=== PATIENT | female | born 1990 | race Hispanic/Latino ===

== ENCOUNTER 2019-07-22 09:48 | Inpatient (IN) | payer MEDICAID, OTHER, SELFPAY ==
[2019-07-22] MEDS ORDERED: Ondansetron PF 4 MG/2 ML Vial IVP PRN ×3 (09:57→15:14)
[2019-07-22] MEDS ORDERED: hydrALAZINE 20 MG/ML VIAL SLOW IVP PRN ×2 (09:57→15:14)
[2019-07-22] MEDS ORDERED: Promethazine HCl 25 MG/ML VIAL IM PRN ×2 (09:57→13:28)
[2019-07-22] MEDS ORDERED: Acetaminophen 500 MG TAB PO PRN (09:57)
[2019-07-22] MEDS ORDERED: CEFAZOLIN 2 GM in Premix Bag 1 BAG IVPB SCH (10:00)
[2019-07-22] MEDS ORDERED: Bicitra 30 ML UDCUP PO SCH (10:00)
[2019-07-22 10:48] VITALS: BMI 38.2
[2019-07-22] MEDS: Lactated Ringer's 1,000 ML IV SCH ×2 (11:06→21:31)
[2019-07-22] MEDS ORDERED: FLU VACC QS2019-20(6MOS UP)/PF 60 MCG/0.5 ML SYRINGE IM ONE (11:15)
--- NOTE | 2019-07-22 11:23 | PDOC.FPROB ---
FMR OB H&P: HPI - History of Present Illness Chief Complaint: Scheduled rLTCS Indentification: 28 year old at 39.2 wks History of Present Illness: 28 year old at 39.2 wks by LMP/15.3 wk sono presents for scheduled rLTCS. Patient doing well. Denies contractions, LoF, vaginal bleeding, vaginal discharge. Patient endorses good movement. Primary Care Physician: BHANU Resendez FMR OB H&P: Current - Care : 2 Para: 1001 Gestational age: 39.2 wks Due date: 07/27/2019 Dating Criteria: LMP/15.3 wk sono - OB Labs Blood type: A RH: positive Antibody Screen: negative HIV: negative RPR: negative HepBsAg: negative Rubella: immune A1c: 6.0% GBS: positive FMR OB H&P: History - Past Medical History PMH: Denies any significant PMH - OB History OB History: C/S x1 GERD A2 GDM on metformin; good control on medication - BAND DIRECTOR History BAND DIRECTOR History: Denies history of STD's - Surgical History Sx History: C/S x1 - Social History Social History: Denies alcohol, tobacco, or drug use FMR OB H&P: Medications - Current Home Medications: Medication Instructions Recorded Confirmed Type Pnv No.95/Ferrous Fum/Folic AC 1 tablet PO DAILY 12/17/14 07/22/19 History [ Tablet] metFORMIN [Glucophage] 500 mg PO QAM-WM 07/22/19 07/22/19 History Allergies/Adverse Reactions: Allergies Allergy/AdvReac Type Severity Reaction Status Date / Time No Known Drug Allergies Allergy Verified 07/22/19 10:47 FMR OB H&P: ROS - Review of Systems General: denies: fever/chills, weight/appetite/sleep changes Eyes: denies: vision changes, scotomas ENT: denies: rhinorrhea, sore throat Cardiovascular: denies: chest pain, palpitation Gastrointestinal: denies: abdominal pain, nausea, vomiting Genitourinary (Female): denies: dysuria, vaginal discharge, vaginal bleeding, contractions Musculoskeletal: denies: pain, stiffness Integumentary: denies: itching, rash, lesions Hematologic/Lymphatic: denies: prolonged or excessive bleeding Psychological: denies: depression, anxiety FMR OB H&P: Vital Signs - Maternal Vital signs: BP 138/76 Pulse 80 Afebrile - Heart Tones Baseline: 140 (reactive) Variability: moderate Acceleration: present Deceleration: absent FMR OB H&P: Physical Exam - Physical Exam General: NAD, awake, alert and oriented HEENT: MMM Heart: RRR, pulses present General: no respiratory distress, good air movement Abdomen: soft, gravid, non-tender Musculoskeletal: pulses present, FROM in all four extremities Neurological: no tremor, no focal deficit Skin: no rash, capillary refill <2 seconds Lymphatic: no unusual bruising or bleeding, no purpura Psychiatric: intact recent and remote memory, good judgement and insight, normal mood and affect FMR OB H&P: A/P - Problem List (1) Term Current Visit: Yes Status: Acute Code(s): Z34.90 - ENCNTR FOR SUPRVSN OF NORMAL , UNSP, UNSP TRIMESTER (2) GDM, class A2 Current Visit: Yes Status: Acute Code(s): O24.419 - GESTATIONAL DIABETES MELLITUS IN , UNSP CONTROL Disposition: 28 year old at 39.2 wks by LMP/15.3 wk sono presents for scheduled rLTCS Encounter for scheduled rLTCS - Hx A2GDM, well controlled on metformin - Previous C/S for failure to progress - Per MFM, not a good TOLAC candidate - Reactive NST - Placenta posterior; no evidence of accreta per MFM A2GDM - Well controlled on Meformin - Will need 2h GTT at 6 wk PP visit Class II Morbid obesity - Patient with qwk testing starting at 32 weeks which were reassuring Hx child with 2V cord - Current fetus with 3V cord Dispo: Admit to L&D. Anticipate LOS >48 hours. Discussion: Date/Time: 07/22/19 1121 This H&P was discussed with Dr. Donis who agrees with the above documentation and plan. Signature: Rosina Resendez DO PGY-3 Addendum - Attending - Attending Attestation Date/Time: 07/22/19 5500 I personally evaluated the patient and discussed the management with Dr. Resendez. I agree with the History, Examination, Assessment and Plan documented above with any addition or exceptions noted below. Discussed r/b/a/i of RCD including pain, bleeding, infection, damage to bowel, bladder, other internal organs, need for repeat operation, blood transfusion, prolonged hospitalization, as well as more morbid complications. Patient voiced understanding and desires to proceed.
[2019-07-22 11:24] LABS: Mean Corpuscular HGB CONC 33.1 g/dL (32.0-36.0); Mean Corpuscular Hemoglobin 29.1 pg (27.0-31.0); Mean Platelet Volume 8.5 fL (7.4-10.4); Platelet Count 253 thou/uL (130-400); Red Blood Cell (RBC) Count 4.46 mill/uL (4.20-5.40); White Blood Cell (WBC) Count 9.9 thou/uL (4.8-10.8)
[2019-07-22] MEDS ORDERED: MORPHINE 5 MG/10 ML PF VIAL ONE (11:51)
[2019-07-22] MEDS ORDERED: Ondansetron PF 4 MG/2 ML Vial ONE (11:51)
[2019-07-22] MEDS ORDERED: EPHEDRINE 25 MG/5 ML SYRINGE ONE (11:51)
[2019-07-22] MEDS ORDERED: Oxytocin 10 UNITS/ML VIAL ONE (11:51)
[2019-07-22] MEDS ORDERED: PHENYLEPHRINE-NS 100 MCG/ML 10 ML SYRINGE ONE (11:51)
[2019-07-22 12:01] LABS: HBSAg Index 0.25 S/CO (0-0.99); Hep B Surf Ag Non-Reactive S/CO (NonReactive); Syphilis Antibody Nonreactive (Nonreactive); Syphilis Antibody Index 0.03 S/CO (<1.00 Non-Reactive)
[2019-07-22] MEDS ORDERED: Promethazine HCl 25 MG SUPP PR PRN (13:28)
[2019-07-22] MEDS ORDERED: diphenhydrAMINE 50 MG/ML VIAL IVP PRN (13:28)
[2019-07-22] MEDS ORDERED: Naloxone HCl 0.4 mg/ml Vial IV PRN (13:28)
[2019-07-22] MEDS ORDERED: Naloxone HCl 0.4 mg/ml Vial IVP PRN ×2 (13:28)
[2019-07-22] MEDS ORDERED: Communication Order-Pharmacy FS SCH (13:30)
--- NOTE | 2019-07-22 13:46 | PDOC.OPDEL ---
OB Operative/Delivery Note Delivery Dr/Surgeon: Dipti Aguirre McGehee Assist: Attending: Gagandeep Pre-Delivery Diagnosis: scheduled section Procedure/Post Delivery Dx: repeat low transverse CS Weeks gestation: 39 (39.2) Anesthesia: spinal - Findings A Sex: female - 1 min: 8 - 5 min: 9 - Additional Findings/Plan Placenta delivered: spontaneous findings: low transverse hysterotomy with extension Estimated blood loss: 750 Compilations/Other Findings: See dictation for detailed operative note. Post delivery plan: recovery in LICU
[2019-07-22] MEDS ORDERED: diphenhydrAMINE 25 MG CAP PO PRN (15:14)
[2019-07-22] MEDS ORDERED: NS / Oxytocin 40 units/1000ml 1,000 ML IV SCH (15:14)
[2019-07-22] MEDS ORDERED: Lanolin Ointment 7 GM TUBE TOP PRN (15:14)
--- NOTE | 2019-07-22 15:49 | OP ---
DATE OF PROCEDURE: 07/22/2019 ATTENDING PHYSICIAN: Dr. René Donis. RESIDENT PHYSICIAN: Dr. Rosina Resendez. CONTROL TOWER RADIO OPERATOR PHYSICIANS: Dr. Sienna Escobedo and Dr. Sarah Aguirre. PREOPERATIVE DIAGNOSES: 1. Term intrauterine . 2. Previous . 3. A2 diabetes mellitus, well controlled. POSTOPERATIVE DIAGNOSES: 1. Term intrauterine , delivered. 2. Low transverse . 3. A2 diabetes mellitus, well controlled. INDICATIONS: This is a 28-year-old female, G2, P1-0-0-1 at 39.2 weeks' gestation by LMP and 15.3 week sono, who presents for scheduled repeat . PROCEDURE IN DETAIL: After risks, benefits, and alternatives were discussed with the patient, she gave informed consent to proceed with section. The patient was taken back to the operating room, where spinal anesthesia was initiated. She was placed on the table in the supine position with left lateral tilt. She was prepped and draped in the usual sterile fashion. A Pfannenstiel incision was made at the level of skin at level of previous incision and carried down to the fascia, which was sharply nicked. The lateral aspect of the fascia was extended bilaterally with Pacheco scissors. Maria Eugenia clamps were used to grasp the superior and inferior edges of the cut fascial edges, and the underlying rectus muscles were sharply and bluntly dissected free. The peritoneum was entered after carefully cutting the rectus muscle in the midline paying careful attention to the bladder. Space was made using bovie cauterization. The rectus muscles and peritoneum were extended laterally. No adhesions were felt on the uterus. A bladder blade was placed. A midline incision was then made on the uterus using a #10 scalpel. Meconium- stained fluid was seen. The hysterotomy was extended manually in the cephalocaudal direction. The infant was noted to be vertex and was easily delivered by fundal pressure. The infant was stimulated and bulb suctioned, and the cord was clamped and cut, and the infant was handed to awaiting nurse. Cord blood was collected. The placenta was removed spontaneously. The uterus was externalized and curretted with a dry lap. There was noted to be a small lateral inferior extension on the left side of the uterus. The hysterotomy and extension were both closed using #1 Monocryl suture in a running locking fashion. The hysterotomy was examined for hemostasis and noted to be hemostatic. The uterus was then internalized, and hysterotomy was again evaluated for hemostasis and noted to be hemostatic. The rectus muscle and fascia were examined for bleeders. The fascia was then closed with 0 PDS suture in a running nonlocking fashion. The subcutaneous tissue was irrigated, and bleeders were cauterized. Subcutaneous tissue was brought together with simple interrupted sutures using 2-0 plain gut. The skin was approximated using 4-0 monofilament. Dermabond was applied. Pressure dressing was placed. All counts were correct. COMPLICATIONS: None. DRAINS: [place] to gravity, draining clear urine. FINDINGS: Grossly normal placenta with 3-vessel cord noted and discarded. Grossly normal female infant with apgars of 8 and 9 at one and five minutes respectively. QBL: 455 mL Job ID: [id number] Attending addendum: I was present for the entire procedure. DINH
--- NOTE | 2019-07-22 20:21 | PDOC.PP ---
Post Progress Note Post Day #: 0 Subjective: Patient states that she is feeling well, pain in good control. Has not passed gas or had a BM yet. Pryor catheter still in place, UOP about 550 mL. Initial pad after delivery just changed had minimal amount of blood on it. Patient denies any complaints at this time. PO intake tolerated: yes Flatus: no Ambulation: no Vital Signs (12 hours) Temp Pulse Resp BP Pulse Ox 07/22/19 19:23 97.9 F 82 12 117/55 L 96 07/22/19 16:57 97.7 F 90 16 119/77 97 07/22/19 16:25 72 18 136/64 98 07/22/19 15:27 97.7 F 70 18 145/74 H 98 Weight Weight 104.326 kg - Physical Examination General: NAD Cardiovascular: no m/r/g, RRR Respiratory: clear to auscultation bilaterally, non-labored breathing Abdominal: + bowel sounds, lochia, no distention, appropriately TTP Fundus firm & at: umbilicus Extremities: negative homans (B) Skin: no rash Deviation from normal: CS dressing dry with no surrounding warmth or erythema Neurological: no gross focal deficits Psychiatric: A&Ox3, normal affect Result Diagrams: 07/23/19 05:52 Additional Labs: Post Labs Blood Type A POSITIVE 07/22/19 11:10 Hep Bs Antigen Non-Reactive S/CO (NonReactive) 07/22/19 11:10 (1) Term Code(s): Z34.90 - ENCNTR FOR SUPRVSN OF NORMAL , UNSP, UNSP TRIMESTER Status: Acute (2) Delivered by section Code(s): O82 - ENCOUNTER FOR DELIVERY WITHOUT INDICATION Status: Acute - Assessment/Plan 28 year old G2 now P2002 at 39.2 wks by LMP/15.3 wk sono presents after scheduled rLTCS @ 1230 today: #Term , delivered via scheduled rLTCS -tolerated delivery well, doing well at initial post-op visit -no BM, flatus, or ambulation yet--continue to monitor -is tolerating PO intake with some nausea -[place] prn, Motrin prn for pain control -Phenergan prn for nausea #A2GDM - Well controlled on Metformin - Will need 2h GTT at 6 wk PP visit Dispo: Stable, admitted to post- unit. Continue to monitor vitals and manage pain control. Routine post- care. Anticipate LOS >48 hours. Addendum - Attending - Attending Attestation Date/Time: 07/22/192034 I personally evaluated the patient and discussed the management with Dr. Bobby I agree with the History, Examination, Assessment and Plan documented above with any addition or exceptions noted below. 28 yo now s/p RLTCS POD#0 Patient doing well. VS reviewed. No complications at this time. Continue routine pp care. Alfreda
[2019-07-22] MEDS: Docusate Calcium (SURFAK) 240 MG CAP PO SCH (22:58)
[2019-07-22] MEDS: Ferrous Sulfate 325 MG TAB PO SCH (22:58)
[2019-07-22] MEDS: Ketorolac Tromethamine 30 MG/ML VIAL IVP PRN (23:52)
[2019-07-23] MEDS ORDERED: HYDROcodone/Acetaminophen 5/325 mg Tablet PO PRN (02:00)
[2019-07-23 06:07] LABS: Hemoglobin 11.8 g/dL (12.0-16.0); Mean Corpuscular HGB CONC 33.7 g/dL (32.0-36.0); Mean Corpuscular Hemoglobin 29.9 pg (27.0-31.0); Mean Corpuscular Volume 88.8 fL (78.0-98.0); Mean Platelet Volume 8.6 fL (7.4-10.4); Platelet Count 191 thou/uL (130-400); RBC Distribution Width 14.1 % (11.5-14.5); Red Blood Cell (RBC) Count 3.95 mill/uL (4.20-5.40); White Blood Cell (WBC) Count 10.6 thou/uL (4.8-10.8)
[2019-07-23] MEDS: Ketorolac Tromethamine 30 MG/ML VIAL IVP PRN (06:16)
--- NOTE | 2019-07-23 07:32 | PDOC.PP ---
Post Progress Note Post Day #: 1 Subjective: Patient doing well. No significant overnight events. Patient states lochia like that of a period. Pain well controlled. PO intake tolerated: yes Flatus: yes Ambulation: yes Vital Signs (12 hours) Temp Pulse Resp BP 07/23/19 04:48 98.2 F 78 16 119/67 07/22/19 23:16 97.7 F 72 14 116/57 L Weight Weight 104.326 kg - Physical Examination General: NAD Cardiovascular: RRR Respiratory: non-labored breathing Abdominal: + bowel sounds, lochia (like period), no distention, appropriately TTP Fundus firm & at: at umbilicus Extremities: negative homans (B) Skin: CS incision dry & intact (minimal amount of blood on dressing, but incision itself clean, dry, intact), no rash Neurological: no gross focal deficits Psychiatric: A&Ox3, normal affect Result Diagrams: 07/23/19 05:52 Additional Labs: Post Labs Blood Type A POSITIVE 07/22/19 11:10 Hep Bs Antigen Non-Reactive S/CO (NonReactive) 07/22/19 11:10 (1) Term Code(s): Z34.90 - ENCNTR FOR SUPRVSN OF NORMAL , UNSP, UNSP TRIMESTER Status: Acute (2) GDM, class A2 Code(s): O24.419 - GESTATIONAL DIABETES MELLITUS IN , UNSP CONTROL Status: Acute - Assessment/Plan 28 year old G2 now P2002 at 39.2 wks by LMP/15.3 wk sono s/p rLTCS. Term , delivered via scheduled rLTCS - s/p rLTCS post-op day #1 - Tolerating PO - [place] prn, Motrin FAUSTO for pain control - Phenergan prn for nausea - Meeting all PP milestone - Incision clean, dry, intact A2GDM - Well controlled on Metformin - Will need 2h GTT at 6 wk PP visit Dispo: Patient doing well. Anticipate d/c home tomorrow or Saturday. Addendum - Attending - Attending Attestation Date/Time: 07/23/19 1430 I personally evaluated the patient and discussed the management with the team. I agree with the History, Examination, Assessment and Plan documented above with any addition or exceptions noted below.
[2019-07-23] MEDS: Ferrous Sulfate 325 MG TAB PO SCH ×2 (08:56→22:57)
[2019-07-23] MEDS ORDERED: Adacel (T-DAP) 0.5 ML SYRINGE IM ONE (09:00)
[2019-07-23] MEDS: Simethicone Chewable 80 MG TAB PO PRN (10:00)
[2019-07-23] MEDS: Prenatal Vitamin 1 TAB PO SCH (10:01)
[2019-07-23] MEDS: Docusate Calcium (SURFAK) 240 MG CAP PO SCH ×2 (10:01→21:55)
[2019-07-23] MEDS: HYDROcodone/Acetaminophen 5/325 mg Tablet PO PRN ×2 (10:06→17:10)
[2019-07-23] MEDS: Ibuprofen 800 MG TAB PO SCH ×2 (14:02→21:55)
[2019-07-24] MEDS: Ibuprofen 800 MG TAB PO SCH (05:25)
[2019-07-24] MEDS: HYDROcodone/Acetaminophen 5/325 mg Tablet PO PRN (05:29)
[2019-07-24] MEDS: Ferrous Sulfate 325 MG TAB PO SCH (08:56)
[2019-07-24] MEDS: Docusate Calcium (SURFAK) 240 MG CAP PO SCH (09:37)
[2019-07-24] MEDS: Simethicone Chewable 80 MG TAB PO PRN (09:37)
[2019-07-24] MEDS: Prenatal Vitamin 1 TAB PO SCH (09:37)
--- NOTE | 2019-07-24 10:41 | PDOC.PP ---
Post Progress Note Post Day #: 2 Subjective: Patient doing very well. Some pain noted around right aspect of incision. She is ambulating without difficulty, passing flatus, and tolerating PO. Lochia is a little more than a period today. PO intake tolerated: yes Flatus: yes Ambulation: yes Vital Signs (12 hours) Temp Pulse Resp BP 07/24/19 05:35 97.5 F L 97 14 127/79 Weight Weight 104.326 kg - Physical Examination General: NAD Cardiovascular: no m/r/g, RRR Respiratory: clear to auscultation bilaterally, non-labored breathing Abdominal: + bowel sounds, lochia (a little more than a period), no distention, appropriately TTP Fundus firm & at: below umbilicus Extremities: negative homans (B) Skin: CS incision dry & intact, no rash Neurological: no gross focal deficits Psychiatric: A&Ox3, normal affect Result Diagrams: 07/23/19 05:52 Additional Labs: Post Labs Blood Type A POSITIVE 07/22/19 11:10 Hep Bs Antigen Non-Reactive S/CO (NonReactive) 07/22/19 11:10 (1) Term Code(s): Z34.90 - ENCNTR FOR SUPRVSN OF NORMAL , UNSP, UNSP TRIMESTER Status: Acute (2) GDM, class A2 Code(s): O24.419 - GESTATIONAL DIABETES MELLITUS IN , UNSP CONTROL Status: Acute - Assessment/Plan 28 year old G2 now P2002 at 39.2 wks by LMP/15.3 wk sono s/p rLTCS. Term , delivered via scheduled rLTCS - s/p rLTCS post-op day #2 - Tolerating PO - [place] prn, Motrin FAUSTO for pain control - Meeting all PP milestone - Incision clean, dry, intact - Lochia a little more than period; advised to notify MD if bleeding continued to increase - Rubella immune, Rh positive A2GDM - Well controlled on Metformin - Will need 2h GTT at 6 wk PP visit Dispo: D/c home today. Addendum - Attending - Attending Attestation Date/Time: 07/26/19 7491 I personally evaluated the patient and discussed the management with Dr. Resendez on day of service. I agree with the History, Examination, Assessment and Plan documented above with any addition or exceptions noted below.
[2019-07-24] MEDS ORDERED: Milk Of Magnesia 30 ML UDCUP PO SCH (10:45)
[2019-07-24 11:09] VITALS: BP 112/71; TEMP 98.7
== END 2019-07-24 12:45 | disposition home or self-care (01) | DRG 788 ==
LOC: L&D 09:48 → 3SW 15:45
PROVIDERS: ADMIT Emergency Medicine; ATTEND Emergency Medicine
PROC: 10D00Z1 Extraction of Products of Conception, Low, Open Approach (ICD-10-PCS; principal; 2019-07-22)
DX: O34.211 Maternal care for low transverse scar from previous cesarean delivery (principal); O24.424 Gestational diabetes mellitus in childbirth, insulin controlled; Z3A.39 39 weeks gestation of pregnancy; O99.62 Diseases of the digestive system complicating childbirth; K21.9 Gastro-esophageal reflux disease without esophagitis; O99.214 Obesity complicating childbirth; O99.824 Streptococcus B carrier state complicating childbirth; E66.01 Morbid (severe) obesity due to excess calories; Z37.0 Single live birth
CPT/HCPCS: 36415; 36416; 51702; 85027; 86780; 86850; 86900; 86901; 87340; J0690; J1885; J2274; J2405; J2590